=== PATIENT | female | born 1985 | race Caucasian/White ===

== ENCOUNTER 2019-08-05 22:14 | Emergency (ER) | payer OTHER ==
[~2019-08-05] VITALS: Ht 167.6 cm; Wt 91.9 kg
[2019-08-05 22:22] VITALS: BP 130/89
--- NOTE | 2019-08-05 22:24 | NUR ---
34 Y/O FEMALE C/O RIGHT EAR PAIN X 2 DAYS. PT SAW PMD YESTERDAY; WAS GIVEN AMOXICILLIN AND EAR DROPS. PT STATES THE EAR DROPS MAKE THE PAIN WORSE AND TYLENOL WEARS OFF. PT ALSO C/O CHILLS. PT STARTED ABX YESTERDAY. AFEBRILE AT THIS TIME. A.O X4 AND FOLLOWS COMMANDS. BREATHING EVEN, UNLABORED. PATIENT STATES "MY EAR HURTS AND HAS BEEN HURTING FOR TWO DAYS NOW". MUCOUS MEMBRANES PINK AND MOIST. RIGHT EAR SHOWS CERUMEN; ACUTE, INTERMITTENT PAIN UPON SLIGHT PALPATION AROUND R. AURICLE AND TRAGUS. PATIENT STATES SHE ALSO HAS NAUSEA, BUT DENIES VOMITING. ERMD MADE AWARE OF STATUS. SIDE RAILSX1. PMH-- DENIES RX-- TYLENOL @ 2130, AMOXICILLIN NKDA
--- NOTE | 2019-08-05 22:30 | NUR ---
PT AMBULATED TO BED 05 WITH STEADY GAIT.
--- NOTE | 2019-08-05 22:54 | NUR ---
ERMD EVALUATING PATIENT AT BEDSIDE.
[2019-08-05] MEDS ORDERED: IBUPROFEN 600 MG TAB PO ONE (23:10)
[2019-08-05 23:28] VITALS: BP 130/89
--- NOTE | 2019-08-06 00:52 | NUR ---
DPatient discharged with v/s stable. Written and verbal after care instructions given and explained. Patient alert, oriented and verbalized understanding of instructions. Ambulatory with steady gait. All questions addressed prior to discharge. ID band removed. Patient advised to follow up with PMD. Rx of OFLOXACIN 0.3% 10 DROPS; TYLENOL WITH CODEINE NO.3 TABLET 1 TAB given. Patient educated on indication of medication including possible reaction and side effects. Opportunity to ask questions provided and answered.
== END 2019-08-05 23:58 | disposition home or self-care (01) ==
LOC: MED 22:14
DX: H60.91 Unspecified otitis externa, right ear (principal); J06.9 Acute upper respiratory infection, unspecified
CPT/HCPCS: 99283